=== PATIENT | female | born 1970 ===

== ENCOUNTER 2016-11-24 14:36 | Emergency (ER) | payer MEDICAID, OTHER ==
[2016-11-24 14:46] VITALS: BMI 25.2
[2016-11-24 14:48] VITALS: RESP 18
[2016-11-24] MEDS ORDERED: Sodium Chloride 0.9% 500 ML IV ONE (16:03)
--- NOTE | 2016-11-24 16:03 | C.PDOC ---
History Of Present Illness 46 year old female with history of HTN presents to the emergency department with complaints of nausea, vomiting, epigastric pain, and headache for three days. Patient denies fever, chills, or diarrhea. Time Seen by Provider: 11/24/16 15:14 Chief Complaint (Nursing): Abdominal Pain History Per: Patient History/Exam Limitations: no limitations Onset/Duration Of Symptoms: Days (3 days ) Current Symptoms Are (Timing): Still Present Location Of Pain/Discomfort: Epigastric Radiation Of Pain To:: None Quality Of Discomfort: "Pain" Associated Symptoms: Vomiting. denies: Fever, Chills, Diarrhea Recent travel outside of the [place]: No Abnormal Vaginal Bleeding: No Past Medical History Reviewed: Historical Data, Nursing Documentation, Vital Signs Vital Signs: Last Vital Signs Temp 97.7 F 11/24/16 17:03 Pulse 78 11/24/16 17:03 Resp 18 11/24/16 17:03 BP 155/98 H 11/24/16 17:03 Pulse Ox 100 11/24/16 18:26 - Medical History PMH: HTN, Kidney Stones, Chronic Kidney Disease Surgical History: Family History: States: Unknown Family Hx - Social History Hx Tobacco Use: No Hx Alcohol Use: No Hx Substance Use: No - Immunization History Hx Tetanus Toxoid Vaccination: No Hx Influenza Vaccination: No Hx Pneumococcal Vaccination: No Review Of Systems Constitutional: Negative for: Fever, Chills Cardiovascular: Negative for: Chest Pain Respiratory: Negative for: Shortness of Breath Gastrointestinal: Positive for: Vomiting, Abdominal Pain. Negative for: Diarrhea Neurological: Positive for: Headache Physical Exam - Physical Exam Appears: Non-toxic, No Acute Distress Skin: Warm, Dry Head: Atraumatic Eye(s): bilateral: Normal Inspection, PERRL, EOMI Oral Mucosa: Moist Neck: Supple Chest: Symmetrical, No Deformity Cardiovascular: Rhythm Regular Respiratory: Normal Breath Sounds, No Rhonchi, No Wheezing Gastrointestinal/Abdominal: Soft, Tenderness (mild epigastric tenderness, no RUQ tenderness ), No Distention, No Guarding Back: No CVA Tenderness Extremity: Normal ROM, No Tenderness Neurological/Psych: Oriented x3, Normal Speech, Normal Cognition ED Course And Treatment - Laboratory Results Result Diagrams: 11/24/16 16:13 11/24/16 16:13 O2 Sat by Pulse Oximetry: 100 (room air ) Progress Note: Labs drawn and patient given pepcid Medical Decision Making Medical Decision Making: pt feels much better after pepcid, mild headache only now, appears much calmer. labs normal. will d/c pt with f/u with gu for hematuria. Disposition Counseled Patient/Family Regarding: Studies Performed, Diagnosis, Need For Followup, Rx Given - Disposition Referrals: Azeb Camargo MD [Medical Doctor] - Curt Garvey MD [Staff Provider] - Disposition: HOME/ ROUTINE Disposition Time: 17:59 Condition: STABLE Additional Instructions: [place] Pepcid segn lo prescrito. Siga con el Dr. Camargo el lunes y llame al Dr. Garvey (urlogo) para sylvester selam ya que tiene han en la orina y antecedentes de clculos renales. Contine tomando kavitha medicamentos para la presin arterial segn las instrucciones. Regrese a ER para cualquier empeoramiento de los s ntomas. Prescriptions: Ranitidine HCl 150 mg PO DAILY #10 tablet Forms: [employer] (Kiswahili), Gen Discharge Inst Tristanian Print Language: IRAQI - Clinical Impression Clinical Impression: Gastritis, Headache - Scribe Statement The provider has reviewed the documentation as recorded by the Scribe Isela Recinos All medical record entries made by the Scribe were at my direction and personally dictated by me. I have reviewed the chart and agree that the record accurately reflects my personal performance of the history, physical exam, medical decision making, and the department course for this patient. I have also personally directed, reviewed, and agree with the discharge instructions and disposition.
[2016-11-24] MEDS ORDERED: Sodium Chloride 0.9% 1,000 ML ONE (16:11)
[2016-11-24 16:23] LABS: BASO % 0.6 % (0.0-2.0); EOS # 0.2 K/uL (0.0-0.7); EOS % 2.4 % (0.0-4.0); HEMATOCRIT 31.2 % (34.0-47.0); LYMPH # 1.6 K/uL (1.0-4.3); LYMPH % 24.5 % (20.0-40.0); MEAN CORPUSCULAR HEMOGLOBIN 25.3 pg (27.0-31.0); MEAN CORPUSCULAR HGB CONC 32.5 g/dL (33.0-37.0); MEAN PLATELET VOLUME 8.4 fL (7.2-11.7); MONO # 0.6 K/uL (0.0-0.8); RED CELL DISTRIBUTION WIDTH 14.4 % (11.5-14.5); WHITE BLOOD COUNT 6.5 K/uL (4.8-10.8)
[2016-11-24 16:27] LABS: MEAN CELL VOLUME 77.8 fL (81.0-99.0)
[2016-11-24 16:37] LABS: CHLORIDE 99 mmol/L (98-107); POTASSIUM 3.7 mmol/L (3.6-5.2); SODIUM 139 mmol/L (132-148)
[2016-11-24 16:39] LABS: GFR AFRICAN-AMERICAN > 60; RBC URINE 17 /hpf (0-3); URINE BILIRUBIN NEGATIVE (NEGATIVE); URINE BLOOD 1+ (NEGATIVE); URINE COLOR Yellow (YELLOW); URINE GLUCOSE (UA) NORMAL (Normal); URINE KETONE NEGATIVE (NEGATIVE); URINE LEUKOCYTE ESTERASE NEG Leu/uL (Negative); URINE PROTEIN NEGATIVE (NEGATIVE); URINE UROBILINOGEN NORMAL mg/dL (0.2-1.0); WBC URINE < 1 /hpf (0-5)
[2016-11-24 16:40] LABS: ALB/GLOB RATIO 1.1 (1.0-2.1); ALKALINE PHOSPHATASE 55 U/L (38-126); ALT/SGPT 44 U/L (9-52); AST/SGOT 28 U/L (14-36); BILIRUBIN,TOTAL 0.5 mg/dL (0.2-1.3); BLOOD UREA NITROGEN 10 mg/dL (7-17); CALCIUM 8.8 mg/dl (8.6-10.4); CARBON DIOXIDE 25 mmol/L (22-30); GLUCOSE,RANDOM 89 mg/dL (65-105); TOTAL PROTEIN 7.4 g/dL (6.3-8.3)
[2016-11-24 17:04] VITALS: BP 155/98; PULSE 78; TEMP 97.7
[2016-11-24 18:09] VITALS: O2SAT 100
== END 2016-11-24 18:27 | disposition home or self-care (01) ==
LOC: C.ER 14:36
DX: R51 Headache (principal); K29.70 Gastritis, unspecified, without bleeding
CPT/HCPCS: 80053; 81001; 83690; 84703; 85025; 96361; 96374; 96375; 99284; J2405; J7040